=== PATIENT | female | born 1975 | race Asian ===

== ENCOUNTER 2018-12-25 12:26 | Emergency (ER) | payer BC, OTHER ==
[~2018-12-25] VITALS: Ht 157.5 cm; Wt 70.0 kg
[~2018-12-25 12:26] MED LIST: ACET160S PO
[2018-12-25] MEDS ORDERED: SODIUM CHLORIDE 0.9% 1,000 ML IV ONE (15:30)
[2018-12-25] MEDS ORDERED: PROCHLORPERAZINE 10MG/2ML VIAL IV ONE (15:30)
[2018-12-25 15:51] VITALS: BP 135/82
[2018-12-25 16:04] LABS: BASOPHILS % 0.7 % (0.0-2.0); EOSINOPHILS % 3.7 % (0.0-5.0); HEMATOCRIT. 35.6 % (36.0-48.0); HEMOGLOBIN. 11.4 g/dL (12.0-16.0); LYMPHOCYTES % 19.7 % (20.0-50.0); MEAN CORPUSCULAR HEMOGLOBIN 24.1 pg (28.0-32.0); MEAN CORPUSCULAR VOLUME 74.9 fL (81.0-99.0); MEAN PLATELET VOLUME 8.3 fl (7.4-10.4); MONOCYTES % 2.8 % (2.0-8.0); NEUTROPHILS % 73.1 % (40.0-76.0); PLATELET 299 x1000/uL (130-400); RED BLOOD CELL COUNT 4.75 mill/uL (4.2-5.4); RED CELL DISTRIBUTION WIDTH 16.8 % (11.6-14.6)
[2018-12-25 16:10] LABS: CHLORIDE 105 mEq/L (98-107)
[2018-12-25 16:17] LABS: CLARITY URINE CLEAR (CLEAR); COLOR URINE YELLOW (YELLOW); KETONES URINE NEGATIVE (NEGATIVE); LEUKOCYTE ESTERASE URINE 1+ (NEGATIVE); NITRITE URINE NEGATIVE (NEGATIVE); OCCULT BLOOD URINE NEGATIVE (NEGATIVE); PH URINE 7.5 (4.5-8.0); PROTEIN URINE NEGATIVE (NEGATIVE); SPECIFIC GRAVITY URINE 1.013 (1.005-1.030); UROBILINOGEN URINE 0.2 E.U./dL (0.2-1.0)
== END 2018-12-25 19:11 | disposition home or self-care (01) ==
LOC: ER 12:58
DX: G43.909 Migraine, unspecified, not intractable, without status migrainosus (principal); N39.0 Urinary tract infection, site not specified; Z90.89 Acquired absence of other organs; Z79.899 Other long term (current) drug therapy
CPT/HCPCS: 36415; 80048; 81003; 81025; 85025; 96374; 99283; J0780; J7030; Z7610

== ENCOUNTER 2024-01-09 22:41 | Emergency (ER) | payer BC, OTHER ==
[~2024-01-09] VITALS: Ht 160 cm; Wt 71.5 kg
[2024-01-09 23:16] LABS: BASOPHILS % 0.8 % (0.0-2.0); CHLORIDE 104 mEq/L (98-107); EOSINOPHILS % 1.9 % (0.0-5.0); HEMATOCRIT. 38.8 % (36.0-48.0); HEMOGLOBIN. 13.2 g/dL (12.0-16.0); LYMPHOCYTES % 19.6 % (20.0-50.0); MEAN CORPUSCULAR HEMOGLOBIN 28.5 pg (28.0-32.0); MEAN CORPUSCULAR VOLUME 83.9 fL (81.0-99.0); MEAN PLATELET VOLUME 8.2 fl (7.4-10.4); MONOCYTES % 6.6 % (2.0-8.0); NEUTROPHILS % 71.1 % (40.0-76.0); PLATELET 270 x1000/uL (130-400); POTASSIUM 3.7 mEq/L (3.5-5.1); RED BLOOD CELL COUNT 4.62 mill/uL (4.2-5.4); RED CELL DISTRIBUTION WIDTH 13.5 % (11.6-14.6); SODIUM 136 mEq/L (136-145); WHITE BLOOD COUNT 8.5 x1000/uL (4.5-11.0)
[2024-01-09 23:17] LABS: CALCIUM 8.7 mg/dL (8.7-10.4); CARBON DIOXIDE 23 mEq/L (21-32)
[2024-01-09 23:22] LABS: CREATININE 0.7 mg/dL (0.6-1.0); GLUCOSE 128 mg/dL (70-105); UREA NITROGEN BLOOD 7 mg/dL (9-23)
[2024-01-09 23:24] LABS: ALANINE AMINOTRANSFERASE 28 IU/L (10-49); ALBUMIN 4.7 g/dL (3.2-4.8); ASPARTATE AMINOTRANSFERASE 23 IU/L (<34); BILIRUBIN TOTAL 0.7 mg/dL (0.1-1.0); HCG SCREEN NEGATIVE; PROTEIN TOTAL 8.7 g/dL (6.0-8.3)
[2024-01-09 23:37] LABS: CLARITY URINE CLEAR (CLEAR); COLOR URINE DARK YELLOW (YELLOW); GLUCOSE URINE NEGATIVE (NEGATIVE); KETONES URINE 3+ (NEGATIVE); LEUKOCYTE ESTERASE URINE TRACE (NEGATIVE); NITRITE URINE NEGATIVE (NEGATIVE); OCCULT BLOOD URINE NEGATIVE (NEGATIVE); PROTEIN URINE TRACE (NEGATIVE); SPECIFIC GRAVITY URINE 1.025 (1.005-1.030)
[2024-01-09 23:47] LABS: TROPONIN I HIGH SENSITIVITY < 4 ng/L (3.0-34)
[2024-01-10] MEDS ORDERED: AZIT250T12 MT (01:02)
[2024-01-10] MEDS ORDERED: ALBU6.7H15 INH (01:02)
[2024-01-10] MEDS ORDERED: P50 MT (01:02)
[2024-01-10] MEDS: DEXAMETHASONE 10 MG/ML VIAL PO ONE (01:25)
[2024-01-10 01:30] VITALS: PULSE 89; RESP 20; O2SAT 98
[2024-01-10] MEDS: IPRATROPIUM/ALBUTEROL 0.5-3(2.5)MG/3ML NEB HHN ONE (01:30)
[2024-01-10] MEDS: KETOROLAC 30MG/ML VIAL IM ONE (01:42)
[2024-01-10 02:34] LABS: RBC URINE 0-2 /hpf (0-2); SQUAMOUS EPITHELIAL CELL URINE FEW /lpf (RARE/1+); WBC URINE 0-2 /hpf (0-2)
[2024-01-10 02:35] LABS: BACTERIA URINE 1+
[2024-01-10] MEDS ORDERED: IOHEXOL-350 100 ML BOTTLE ONE (05:38)
[2024-01-10] MEDS ORDERED: LEVO750T68 MT (06:07)
[2024-01-10] MEDS ORDERED: GUAIFENESIN 600MG ER TABLET PO SCH (06:15)
[2024-01-10] MEDS: LEVOFLOXACIN 250MG TABLET PO ONE (07:50)
[2024-01-10] MEDS: ACETAMINOPHEN 325MG TABLET PO ONE (07:50)
[2024-01-10 08:00] VITALS: BP 122/82; PULSE 89; RESP 20; TEMP 98.1
== END 2024-01-10 08:09 | disposition home or self-care (01) ==
LOC: ER 22:41
DX: J40 Bronchitis, not specified as acute or chronic (principal); D64.9 Anemia, unspecified; G43.909 Migraine, unspecified, not intractable, without status migrainosus; Z79.899 Other long term (current) drug therapy
CPT/HCPCS: 80053; 81003; 84703; 83880; 85025; 85379; 84484; 36415; 71045; 94640; 93005; 99285; 71275; 96372; Z7610 ×4; Q9967; J1100; J1885